=== PATIENT | female | born 1930 | race Caucasian/White ===

== ENCOUNTER → 2016-02-23 | Outpatient (CLI) | payer MEDICARE ==
--- NOTE | 2016-02-23 12:10 | REP ---
TWO VIEW CHEST: No comparison. PA and lateral views of the chest are performed. There is no acute infiltrate. Minor bibasilar fibrotic changes are present. The heart is normal in size. There is calcification and ectasia of the thoracic aorta. There are degenerative changes of the spine. IMPRESSION: No acute pulmonary disease. Mild chronic changes. Signed by Jesse Rosario MD 02/23/2016 01:29 P
== END ==
LOC: M RAD 11:06
PROVIDERS: ATTEND Ophthalmology
DX: H25.13 Age-related nuclear cataract, bilateral (principal)

== ENCOUNTER → 2016-02-29 | Outpatient (CLI) | payer MEDICARE | LOC: M LAB 11:09 | PROVIDERS: ATTEND Ophthalmology | DX: Z01.818 Encounter for other preprocedural examination (principal) ==